=== PATIENT | female | born 1970 | race Caucasian/White ===

== ENCOUNTER 2020-07-26 19:39 | Emergency (ER) | payer BC ==
[~2020-07-26 19:39] MED LIST: ADULT ASPIRIN81 MG PO; CYMBALTA 30 MG30 MG PO; DEXILANT60 MG PO; KEFLEX CAP 500500 MG PO; LIPITOR TAB 1010 MG PO; NORCO 10-325 T1 EACH PO; PAXIL20 MG PO; TIGAN300 MG PO; TOPAMAX25 MG PO; VITAMIN D250000 UNIT PO
[2020-07-26 20:39] LABS: HEMOGLOBIN 13.7 gm/dl (12.3-15.3); RED BLOOD COUNT 4.52 M/UL (4.00-5.10); WHITE BLOOD COUNT 5.6 K/UL (4.5-11.0)
[2020-07-26 20:55] LABS: BUN/CREATININE RATIO 13 (0-10)
[2020-07-27] MEDS ORDERED: IBUPROFEN800 MG PO (00:19)
[2020-07-27] MEDS ORDERED: HYDROCODON-ACE1 EAC4 PO (00:19)
[2020-07-27] MEDS ORDERED: OMNICEF 300 MG300 MG PO (00:19)
[2020-07-27] MEDS ORDERED: ZOFRAN 4 MG TAB4 MG PO (00:19)
[2020-07-27] MEDS ORDERED: FLOMAX0.4 MG PO (00:19)
== END 2020-07-27 00:35 | disposition home or self-care (01) ==
LOC: ER1 19:39
PROVIDERS: Emergency Medicine
DX: N13.2 Hydronephrosis with renal and ureteral calculous obstruction (principal); Z88.1 Allergy status to other antibiotic agents; Z88.8 Allergy status to other drugs, medicaments and biological substances
CPT/HCPCS: 80053; 81001; 83690; 84484; 85025; 96374; 96375; 99284; J1885; J2270; J2405

== ENCOUNTER → 2020-12-13 | Outpatient (CLI) | payer BC ==
[~2020-12-13] MED LIST changes: +FLOMAX0.4 MG PO; +HYDROCODON-ACE1 EAC4 PO; +IBUPROFEN800 MG PO; +OMNICEF 300 MG300 MG PO; +ZOFRAN 4 MG TAB4 MG PO
== END ==
LOC: KOH-I 14:10
DX: R42 Dizziness and giddiness (principal); R51.9 Headache, unspecified
CPT/HCPCS: 70450

== ENCOUNTER 2021-01-01 14:08 | Emergency (ER) | payer BC | END 2021-01-01 15:48 | disposition home or self-care (01) | LOC: ER1 14:08 | DX: U07.1 COVID-19 (principal); Z90.49 Acquired absence of other specified parts of digestive tract; Z90.710 Acquired absence of both cervix and uterus; Z88.8 Allergy status to other drugs, medicaments and biological substances | CPT/HCPCS: 99283 ==

== ENCOUNTER → 2021-12-19 | Outpatient (CLI) | payer BC | LOC: RAD 14:14 | DX: M79.642 Pain in left hand (principal); M79.641 Pain in right hand; R53.82 Chronic fatigue, unspecified; K31.84 Gastroparesis; M79.10 Myalgia, unspecified site; M15.0 Primary generalized (osteo)arthritis; R76.0 Raised antibody titer | CPT/HCPCS: 73130 ==

== ENCOUNTER → 2022-01-19 | Outpatient (CLI) | payer BC ==
[~2022-01-19] VITALS: Ht 167.6 cm; Wt 83.9 kg
[~2022-01-19] MED LIST changes: +ATORVASTATIN CA20 MG PO; +BUSPIRONE HCL15 MG PO; +CLONAZEPAM0.5 M1 PO; +CLONIDINE HCL0.1 MG PO; +COLACE100 MG PO; +CYANOCOBAL1000 MCG/1 INJ; +DEXLANSOPRAZOLE60 MG PO; +FLECAINIDE ACET50 MG PO; +FOLIC ACID1 MG PO; +HYDROXYCHLOROQ200 MG PO; +IMMUNE GLOBULIN; +KENALOG OINT 0.15 GM TOP; +LIDOCAINE-PRILOC5 GM EXT; +MECLIZINE HCL25 MG PO; +METOPROLOL SUCC25 MG PO; +ONDANSETRON HCL4 MG PO; +PAROXETINE HCL30 MG PO; +PREDNISONE10 MG PO; +PROMETHAZINE HC25 M1 PO; +QUETIAPINE FUMA25 MG PO; +ROPINIROLE HCL1 MG PO; +VITAMIN D31250 MCG PO; +XARELTO20 MG PO
[2022-01-19 09:33] LABS: BUN/CREATININE RATIO 17 (0-10)
== END ==
LOC: OPSV2 08:00
PROVIDERS: Orthopaedic Surgery
DX: Z01.818 Encounter for other preprocedural examination (principal); M65.341 Trigger finger, right ring finger
CPT/HCPCS: 80048; 93005

== ENCOUNTER → 2022-02-02 | Day surgery (SDC) | payer BC ==
[~2022-02-02] VITALS: Ht 167.6 cm; Wt 84.4 kg
== END | disposition home or self-care (01) ==
LOC: OR 05:15
DX: M65.341 Trigger finger, right ring finger (principal); I10 Essential (primary) hypertension; E78.5 Hyperlipidemia, unspecified; K21.9 Gastro-esophageal reflux disease without esophagitis; Z88.2 Allergy status to sulfonamides; Z88.8 Allergy status to other drugs, medicaments and biological substances; Z79.899 Other long term (current) drug therapy
CPT/HCPCS: J0690; J1100; J1885; J2001; J2250; J2405; J2704; J3010